=== PATIENT | male | born 1995 ===

== ENCOUNTER → 2017-04-10 | Outpatient (CLI) | payer BC | LOC: BMCIMAGING 13:40 | PROVIDERS: ATTEND Family Medicine | DX: S02.651A Fracture of angle of right mandible, initial encounter for closed fracture (principal) ==

== ENCOUNTER → 2017-07-16 | Outpatient (CLI) | payer BC | LOC: BMCIMAGING 11:42 | PROVIDERS: ATTEND Family Medicine | DX: M25.531 Pain in right wrist (principal) ==